=== PATIENT | female | born 1990 ===

== ENCOUNTER 2019-04-07 06:50 | Inpatient (IN) | payer BC ==
[2019-04-07] VITALS (18 sets, daily range): BP systolic 90–124; BP diastolic 54–89; PULSE 73–95; TEMP 97.6–98.2
[~2019-04-07] VITALS: Ht 165.2 cm; Wt 87.3 kg
[2019-04-07] MEDS ORDERED: PRENA1 CHEW1 CT1 PO (09:29)
[2019-04-07 09:38] LABS: BASO # 0.1 (0.0-0.2); BASO % 0.5 % (0.0-2.0); EOS # 0.3 (0.0-0.7); EOS % 2.1 % (0-4.0); GRAN # 7.7 (1.4-6.5); GRAN % 66.3 % (42.2-75.2); HEMATOCRIT 38.2 % (37.0-47.0); HEMOGLOBIN 12.7 g/dl (12.5-16.0); LYMPH # 2.5 (1.2-3.4); LYMPH % 21.5 % (20.0-51.0); MEAN CELL VOLUME 86 fl (80.0-100.0); MEAN CORPUSCULAR HEMOGLOBIN 29 pg (27.0-31.0); MEAN CORPUSCULAR HGB CONC 33 g/dl (33.0-37.0); MEAN PLATELET VOLUME 9.4 fl (7.4-10.4); MONO % 8.7 % (1.7-9.3); PLATELET COUNT 246 K/mm3 (130-400); RED BLOOD COUNT 4.42 M/mm3 (4.10-5.30); REDCELL DISTRIBUTION WIDTH-CV 13.9 % (11.5-14.5)
--- NOTE | 2019-04-07 16:54 | NUR ---
PT UP TO SIDE OF BED AND STANDING INDEPENDENTLY. 2 PERSON ASSIST TO BATHROOM PT LEGS UNSTABLE WHEN TAKING STEPS. WAGNER REMOVED, PERICARE PROVIDED, PANTIES AND PAD PLACED, NEW GOWN PROVIDED. PT ASSISTED BACK TO BED, INSTRUCTED TO CALL FOR ASSISTANCE WHEN GETTING UP TO BATHROOM. PT TOLERATED WELL.
[2019-04-08] VITALS: BP 112/63; PULSE 77; TEMP 97.9
[2019-04-08 08:45] VITALS: BP 102/62; PULSE 78; TEMP 97.3
--- NOTE | 2019-04-08 10:30 | NUR ---
IV REMOVED, PATIENT TO SHOWER TOLERATED WELL, DRESSING REMOVED IN SHOWER, THIS NURSE ASSESSED INCISION, EDGES WELL APPROXIMATED, NO DRAINAGE NOTED, NO REDNESS OR SWELLING NOTED. SLIGHT BRUISING AROUND SITE. BINDER APPLIED TO PATIENT'S ABDOMEN, TOLERATED WELL. DENIES FURTHER NEEDS.
--- NOTE | 2019-04-08 10:34 | NUR ---
Initial visit; Patient and family thanked [employer] for looking in on them and offering congratulations for the of their baby girl. [facility] thanked patient for choosing [facility].
[2019-04-08 17:00] VITALS: BP 122/71; PULSE 95; TEMP 98.1
[2019-04-08 20:00] VITALS: BP 106/75; PULSE 100; TEMP 98
[2019-04-09 08:00] VITALS: BP 115/73; PULSE 97; TEMP 98.2
[2019-04-09] MEDS ORDERED: IBU800 M1 PO (09:02)
[2019-04-09] MEDS ORDERED: PERCOCET 325 MG1 TA2 PO (09:02)
== END 2019-04-09 16:00 | disposition home or self-care (01) | DRG 788 ==
LOC: LDR 06:50 → OB 08:59
PROVIDERS: ADMIT Student in an Organized Health Care Education/Training Program
PROC: 10D00Z1 Extraction of Products of Conception, Low, Open Approach (ICD-10-PCS; principal; 2019-04-07)
DX: O36.5930 Maternal care for other known or suspected poor fetal growth, third trimester, not applicable or unspecified (principal); O99.62 Diseases of the digestive system complicating childbirth; Z3A.37 37 weeks gestation of pregnancy; Z37.0 Single live birth; K21.9 Gastro-esophageal reflux disease without esophagitis
CPT/HCPCS: J0690; J1885; J2370; J2405; J2590; J7120

== ENCOUNTER 2021-03-24 10:48 | Inpatient (IN) | payer BC ==
[2021-03-24] VITALS (26 sets, daily range): BP systolic 73–118; BP diastolic 43–76; PULSE 61–106; TEMP 97.6–98.6
[~2021-03-24] VITALS: Ht 165.1 cm; Wt 88.6 kg
[~2021-03-24 10:48] MED LIST: IBU800 M1 PO; PERCOCET 325 MG1 TA2 PO; PRENA1 CHEW1 CT1 PO
--- NOTE | 2021-03-24 11:00 | NUR ---
1100- 38.0, G2L1 here from clinic with reports of decreased movement. Per Dr. Hendrix BPP in clinic 08/29. Ambulatory to LDR2. Changes into clean gown. Denies any LOF, VB, or contractions. 1102- EFM explained and placed. Assessment completed. VS obtained. Questions invited and answered. POC reviewed.
[2021-03-24 11:36] LABS: BASO % 0.3 % (0.0-2.0); EOS # 0.2 (0.0-0.7); EOS % 1.9 % (0-4.0); GRAN % 68.3 % (42.2-75.2); HEMATOCRIT 39.4 % (37.0-47.0); HEMOGLOBIN 12.8 g/dl (12.5-16.0); LYMPH # 2.5 (1.2-3.4); LYMPH % 20.9 % (20.0-51.0); MEAN CELL VOLUME 85 fl (80.0-100.0); MEAN CORPUSCULAR HEMOGLOBIN 28 pg (27.0-31.0); MEAN CORPUSCULAR HGB CONC 33 g/dl (33.0-37.0); MEAN PLATELET VOLUME 9.8 fl (7.4-10.4); MONO % 8.2 % (1.7-9.3); PLATELET COUNT 283 K/mm3 (130-400); RED BLOOD COUNT 4.66 M/mm3 (4.10-5.30); REDCELL DISTRIBUTION WIDTH-CV 14.8 % (11.5-14.5)
--- NOTE | 2021-03-24 13:10 | NUR ---
Dr. Hendrix at bedside and reviews strips. POC reviewed with patient and spouse who verbalize understanding. Resting with call light within reach.
--- NOTE | 2021-03-24 17:00 | NUR ---
To pacu via bed with this nurse and anesthesia Thee. Blood pressure machine on. Denies any pain or discomfort at this time. Spouse at bedside.
--- NOTE | 2021-03-24 17:10 | NUR ---
Anesthesia notified of blood pressure of 77/48/. States give her a bolus and lay her head down.
--- NOTE | 2021-03-24 17:20 | NUR ---
Rests in bed, alert. Baby brought in. Holds lovingly.
--- NOTE | 2021-03-24 17:45 | NUR ---
To room 209 via bed with this nurse and patients . Blood pressure on. Water and crackers given.
--- NOTE | 2021-03-24 19:00 | NUR ---
Dr. Hendrix called and updated on patient. Let him know that we did not have a tylenol order for her. States to given tylenol 1000 mg every six hours prn. Also let him know that blood pressures have been low. 77/48, 82/50, 86/52, 96/53. Also let him know that patient tolerating with out any nausea or lightheadiness. States to watch blood pressures. If patient starts to run a high pulse to call back.
[2021-03-25 01:00] VITALS: BP 104/63; PULSE 76
[2021-03-25 04:50] VITALS: BP 114/77; PULSE 72; TEMP 97.7
[2021-03-25 08:55] VITALS: BP 114/73; PULSE 71; TEMP 97.5
[2021-03-25 12:30] VITALS: BP 111/66; PULSE 81; TEMP 97.9
[2021-03-25 16:45] VITALS: BP 110/65; PULSE 68; TEMP 97.7
[2021-03-25 18:47] VITALS: BP 114/70; PULSE 87; TEMP 98.5
[2021-03-26 08:00] VITALS: BP 118/73; PULSE 79; TEMP 98.1
[2021-03-26 09:25] VITALS: BP 113/87; PULSE 87; TEMP 97.5
[2021-03-26] MEDS ORDERED: IBU600 MG PO (10:17)
[2021-03-26] MEDS ORDERED: ROXICODONE 55 MG/TAB PO (10:18)
== END 2021-03-26 11:45 | disposition home or self-care (01) | DRG 788 ==
LOC: LDR 10:48 → OB 18:00
PROVIDERS: ADMIT Obstetrics & Gynecology
PROC: 10D00Z1 Extraction of Products of Conception, Low, Open Approach (ICD-10-PCS; principal; 2021-03-24)
DX: O34.211 Maternal care for low transverse scar from previous cesarean delivery (principal); Z3A.38 38 weeks gestation of pregnancy; Z37.0 Single live birth; O36.5130 Maternal care for known or suspected placental insufficiency, third trimester, not applicable or unspecified
CPT/HCPCS: J0171; J0690; J1100; J1885; J2370; J2405; J2590; J7120